=== PATIENT | male | born 1980 | race American Indian/Alaskan Native ===

== ENCOUNTER 2022-02-05 22:45 | Emergency (ER) | payer SELFPAY ==
[2022-02-06] MEDS ORDERED: TETANUS,DIPHTHERIA TOXOID ADULT 0.5 ML INJ IM NR (00:27)
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
--- NOTE | 2022-02-06 00:54 | XRay Report ---
EXAMINATION: XR forearm LT, XR humerus 2+V LT, INDICATION / CLINICAL INFORMATION: Trauma COMPARISON: None available. FINDINGS: Left forearm: There is an acute minimally displaced fracture of the radial head with intra-articular involvement. Negligible intra-articular incongruency. Mild joint capsular distention of the elbow, co nsistent with hemarthrosis. Radiocapitellar alignment is preserved. No additional fracture of the lef t forearm. Left humerus: No acute fracture of the left humerus. Left shoulder is intact. No focal soft tissue ab normality. IMPRESSION: Acute minimally displaced intra-articular radial head fracture. Signer Name: Horacio Holloway MD Signed: 02/06/2022 12:50 AM Workstation Name: [id number]
--- NOTE | 2022-02-06 01:06 | Cat Scan Report ---
CT HEAD WITHOUT CONTRAST INDICATION / CLINICAL INFORMATION: Head injury. TECHNIQUE: All CT scans at this location are performed using CT dose reduction for ALARA by means of automated exposure control. COMPARISON: None available. FINDINGS: BRAIN PARENCHYMA: No acute intracranial hemorrhage. No evidence of recent infarct. No mass effect or midline shift. VENTRICULAR SYSTEM/EXTRA-AXIAL SPACES: Ventricles are normal for age. No extra-axial fluid collection . ORBITS: Normal as visualized. SKELETAL SYSTEM/SOFT TISSUES: Frontal scalp soft tissue swelling. Calvarium is intact. No evidence of fracture. PARANASAL SINUSES/MASTOID AIR CELLS: No significant abnormality. ADDITIONAL FINDINGS: None. IMPRESSION: Frontal scalp contusion. No acute intracranial abnormality. Signer Name: Horacio Holloway MD Signed: 02/06/2022 1:02 AM Workstation Name: [id number]
[2022-02-06] MEDS ORDERED: KETOROLAC 60 MG/2 ML INJ IM ONE (01:20)
[2022-02-06 03:15] VITALS: BP 135/72
== END 2022-02-06 02:45 | disposition home or self-care (01) ==
LOC: ED 22:45
DX: S52.122A Displaced fracture of head of left radius, initial encounter for closed fracture (principal); S00.03XA Contusion of scalp, initial encounter; V87.7XXA Person injured in collision between other specified motor vehicles (traffic), initial encounter; Y93.89 Activity, other specified; Y92.488 Other paved roadways as the place of occurrence of the external cause; Y99.8 Other external cause status
CPT/HCPCS: 29105; 70450; 73060; 73090; 90471; 90714; 96372; 99284; J1885